=== PATIENT | male | born 1995 | race Caucasian/White ===

== ENCOUNTER 2020-12-14 16:04 | Emergency (ER) | payer OTHER, SELFPAY ==
[2020-12-14 16:14] VITALS: BP 143/89; PULSE 82; RESP 16; TEMP 37.2; O2SAT 97; BMI 25.0
--- NOTE | 2020-12-14 17:10 | ED.WOUNDLAC ---
HPI - Wound/Laceration General Chief Complaint: Wound/Laceration Stated Complaint: work inj Time Seen by Provider: 12/14/20 17:06 Source: patient Mode of arrival: ambulatory Limitations: no limitations History of Present Illness HPI narrative: Patient presents to the ED for left thumb pain laceration that occurred at work. Patient states he was using a rasor and he cut his thumb by accident. patient has no past medical history. patient has complete range of motion of thumb. patient states no other recent trauma to the thumb or rest of body.. Related Data Previous Rx's Medication Instructions Recorded cephalexin 500 mg capsule 500 mg PO QID #28 cap 12/14/20 naproxen 500 mg tablet 500 mg PO BID PRN #20 tab 12/14/20 Allergies Allergy/AdvReac Type Severity Reaction Status Date / Time No Known Allergies Allergy Verified 12/14/20 17:06 Review of Systems Review of Systems: Yes all other systems are reviewed and are negative Constitutional: Constitutional: Reports as per HPI and Reports no additional constitutional complaints Eyes: Eyes: Reports as per HPI and Reports no additional eye complaints ENT: Reports system reviewed and no additional complaints, except as documented and Reports as per HPI Cardiovascular: Cardiovascular: Reports as per HPI and Reports no additional cardiovascular complaints Respiratory: Respiratory: Reports as per HPI and Reports no additional respiratory complaints Gastrointestinal: Gastrointestinal: Reports as per HPI and Reports no additional gastrointestinal complaints Genitourinary: Genitourinary: Reports no additional male genitourinary complaints and Reports as per HPI Musculoskeletal: Musculoskeletal: Reports no additional musculoskeletal complaints Comments: left thumb laceration Neurologic: Reports system reviewed and no additional complaints, except as documented and Reports as per HPI Psychiatric: Psychiatric: Reports no additional psychiatric complaints and Reports as per HPI [facility] Social History Social History Advance Directives: No Advance Directives Information Provided: No Physical Exam Vital Signs: Vital Signs: Last Vital Signs Temp 98.9 F 12/14/20 16:14 Pulse 82 12/14/20 16:14 Resp 16 12/14/20 16:14 BP 143/89 H 12/14/20 16:14 Pulse Ox 97 12/14/20 16:14 Body Mass Index 25.0 Const: General: cooperative, healthy appearing, comfortable, no acute distress, well developed, alert, awake and Physically active HENMT: Head: Yes normal to inspection, Yes No palpable skull fracture present, Yes normocephalic, Yes atraumatic and No abrasion Eyes: General: appearance normal, both eyes and all related structures Neck: Neck: Yes normal visual inspection, Yes full ROM, Yes no lymphadenopathy, Yes no meningeal signs, Yes trachea midline, Yes supple and No tender Chest: Chest palpation & inspection: normal inspection of the chest and normal palpation of entire chest wall Resp: Effort & Inspection: normal respiratory effort and able to speak in complete sentences Auscultation: clear to auscultation bilaterally Cardio: Jugular venous distension: no JVD Heart sounds: S1 normal heart sound present and S2 normal heart sound present GI: Inspection: Yes normal to inspection and No abdominal wall ecchymosis Palpation (GI): Soft to palpation, not firm, nontender, no guarding and not rigid : General: No CVA tenderness Back/Spine/Pelvis: Back: No CVA tenderness and No back tenderness Skin: General skin exam: no rashes or lesions noted and elasticity normal Neuro: General: gait normal, no meningeal signs and CN's II-XI intact bilaterally Cranial nerves: Yes CN's II-XII intact bilaterally Extrem: Hand/finger images: 1. very superficial laceration with no active bleeding. patient has complete range of motion of thumb. patient able to flex and extend. Capillary refill is intact. Thumb neuro/vascular/motor exam is intact. REst of extremity negative for signs of trauma and motor, neuro, vascular exam is intact Psych: Appearance: grossly normal, well kempt and not disheveled Course Course Course Narrative: Patient has complete range of motion of left thumb. Not suspecting any tendon/nerve injury. Laceration very superficial and linear. Not suspecting any fracture. No need for x-ray. Not suspecting any arterial bleed. Wound will be cleaned. Tetanus and Motrin ordered. Reevaluation(s) Reevaluation #1: Not able to find dermabond glue. Are clean with sterile saline and bedadine iodine. 3ml of lidocaine 2% used for anethesia. Size 3 prolene sutres was used for laceration repair. 3 sutures were placed. Time: 18:17 MDM - Wound/Laceration MDM Narrative Medical decision making narrative: laceration repair Discharge Plan Discharge Clinical Impression: Laceration Patient Disposition: Home, Self-Care Instructions: Finger Laceration (ED) Additional Instructions: Return to the ED for any redness, swelling, pus discharge, foul odor, fever, chills, bluish black discoloration, inability to extremity, numbness, or any other concerning symptoms. Prescriptions: New cephalexin 500 mg capsule 500 mg PO QID Qty: 28 RF: 0 naproxen 500 mg tablet 500 mg PO BID PRN (Reason: pain) Qty: 20 RF: 0 Referrals: [facility] [Provider Group] - 2 days (left thumb laceration at work) Stand Alone Forms: Work/School Release Print Language: Bulgarian
[2020-12-14] MEDS: Ibuprofen 800 MG TABLET PO (17:32)
[2020-12-14] MEDS: Diphth,Pertus(ACell),Tet Adult 0.5 ML SYRINGE IM (17:32)
[2020-12-14] MEDS: Lidocaine HCl 2 % MPF 5 ML VIAL INFILTRATI (19:01)
== END 2020-12-14 19:00 | disposition home or self-care (01) ==
PROVIDERS: Emergency Provider Internal Medicine
DX: S61.012A Laceration without foreign body of left thumb without damage to nail, initial encounter (principal); S60.512A Abrasion of left hand, initial encounter; W26.9XXA Contact with unspecified sharp object(s), initial encounter; Y93.9 Activity, unspecified; Y92.9 Unspecified place or not applicable; Y99.0 Civilian activity done for income or pay
CPT/HCPCS: 12001; 90471; 90715; 99284

== ENCOUNTER → 2020-12-15 14:00 | Outpatient (BNVA) | payer OTHER, SELFPAY | PROVIDERS: Visit Provider Physician Assistant Medical | DX: S61.012A Laceration without foreign body of left thumb without damage to nail, initial encounter (principal); W26.9XXA Contact with unspecified sharp object(s), initial encounter | CPT/HCPCS: 99203 ==

== ENCOUNTER → 2020-12-22 09:19 | Outpatient (BNVA) | payer OTHER, SELFPAY | PROVIDERS: Visit Provider Physician Assistant Medical | DX: S61.011A Laceration without foreign body of right thumb without damage to nail, initial encounter (principal); W26.9XXA Contact with unspecified sharp object(s), initial encounter; Z48.02 Encounter for removal of sutures | CPT/HCPCS: 99212; 99213 ==